=== PATIENT | female | born 1965 ===

== ENCOUNTER 2017-03-16 09:55 | Emergency (ER) | payer OTHER, SELFPAY ==
[2017-03-16 10:06] VITALS: BP 146/66; PULSE 80; RESP 18; TEMP 98; O2SAT 98
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
[2017-03-16] MEDS ORDERED: Naproxen 500 MG TAB PO ONE ×2 (10:51→11:04)
--- NOTE | 2017-03-16 13:33 | RAD ---
PROCEDURE: Radiographs of the Lumbar Spine. HISTORY: pain COMPARISON: No prior. FINDINGS: BONES: Normal alignment. No listhesis. No fracture. DISC SPACES: Unremarkable. OTHER FINDINGS: None. IMPRESSION: No acute findings related to/accounting for the clinical presentation.
== END 2017-03-16 11:38 | disposition home or self-care (01) ==
LOC: H.ER 09:55
DX: M54.5 Low back pain (principal); V43.52XA Car driver injured in collision with other type car in traffic accident, initial encounter; Y92.410 Unspecified street and highway as the place of occurrence of the external cause